=== PATIENT | female | born 1995 | race Caucasian/White ===

== ENCOUNTER 2017-12-14 14:21 | Inpatient (IN) | payer OTHER ==
[2017-12-14] MEDS: IV NORMAL SALINE 1000ML BAG 1,000 ML IV ×2 (15:37→20:30)
[2017-12-14] MEDS: LIDO:MAALOX:DONNATAL 1:1:1 15 ML SINGLE DOSE SWSW (15:40)
[2017-12-14] MEDS: ONDANSETRON PF 4 MG/2 ML VIAL. IV ×2 (15:42→23:04)
[2017-12-14] MEDS: PANTOPRAZOLE IV PUSH 40 MG VIAL. IVP (15:46)
[2017-12-14] MEDS: FAMOTIDINE 20 MG TABLET. PO (15:55)
[2017-12-14] MEDS: fentaNYL PF VIAL 100 MCG/2 ML VIAL IV ×3 (15:55→21:57)
[2017-12-14 15:56] LABS: BILIRUBIN,URINE NEGATIVE (NEG); CLARITY,URINE TURBID; COLOR,URINE YELLOW; GLUCOSE,URINE NEGATIVE (NEG); NITRITE,URINE NEGATIVE (NEG); PROTEIN,URINE NEGATIVE (NEG-TRACE)
[2017-12-14 15:57] LABS: URINE HCG POC HCG NEGATIVE (Negative)
[2017-12-14 16:05] LABS: BACTERIA,URINE MODERATE /HPF (0-FEW); RBC,URINE 0 /HPF (0-2); SQUAMOUS EPITHELIAL CELL,UR MOD /LPF
[2017-12-14 16:11] LABS: ADD MAN DIFF? NO
[2017-12-14 16:12] LABS: BASO # 0.1 x10^3/uL (0.0-0.2); BASO % 1 % (0-3); EOS # 0.1 x10^3/uL (0.0-0.7); EOS % 1 % (0-3); HEMATOCRIT 36.5 % (36.0-47.0); HEMOGLOBIN 12.6 g/dL (12.0-15.5); LYMPH % 31 % (24-48); MEAN CORPUSCULAR HEMOGLOBIN 32 pg (25-35); MEAN CORPUSCULAR HGB CONC 35 g/dL (31-37); MEAN CORPUSCULAR VOLUME 91 fL (79-100); MONO # 0.5 x10^3/uL (0.0-1.1); MONO % 8 % (0-9); NEUT # 3.8 x10^3uL (1.8-7.7); NEUT % 59 % (31-73); PLATELET COUNT 158 x10^3/uL (140-400); RED BLOOD COUNT 3.99 x10^6/uL (3.50-5.40); RED CELL DISTRIBUTION WIDTH 11.9 % (11.5-14.5); WHITE BLOOD COUNT 6.5 x10^3/uL (4.0-11.0)
[2017-12-14 16:29] LABS: ANION GAP 9 (6-14); BLOOD UREA NITROGEN 17 mg/dL (7-20); BUN/CREATININE RATIO 21 (6-20); CALCIUM 8.2 mg/dL (8.5-10.1); CARBON DIOXIDE 26 mmol/L (21-32); CHLORIDE 105 mmol/L (98-107); CREATININE 0.8 mg/dL (0.6-1.0); GFR 88.9; GLUCOSE 92 mg/dL (70-99); POTASSIUM 3.9 mmol/L (3.5-5.1); SODIUM 140 mmol/L (136-145)
[2017-12-14 16:34] LABS: ALBUMIN 3.6 g/dL (3.4-5.0); ALBUMIN/GLOBULIN RATIO 1.2 (1.0-1.7); ALK PHOS 49 U/L (46-116); ALT (SGPT) 132 U/L (14-59); AST (SGOT) 49 U/L (15-37); LIPASE 86 U/L (73-393); TOTAL BILIRUBIN 1.2 mg/dL (0.2-1.0); TOTAL PROTEIN 6.5 g/dL (6.4-8.2)
[2017-12-15] MEDS: fentaNYL PF VIAL 100 MCG/2 ML VIAL IV ×3 (04:10→13:15)
[2017-12-15 05:27] LABS: ADD MAN DIFF? NO
[2017-12-15 05:33] LABS: BASO % 1 % (0-3); EOS # 0.1 x10^3/uL (0.0-0.7); EOS % 1 % (0-3); HEMOGLOBIN 11.4 g/dL (12.0-15.5); LYMPH # 2.1 x10^3/uL (1.0-4.8); LYMPH % 40 % (24-48); MEAN CORPUSCULAR HEMOGLOBIN 32 pg (25-35); MEAN CORPUSCULAR HGB CONC 35 g/dL (31-37); MEAN CORPUSCULAR VOLUME 93 fL (79-100); MONO # 0.6 x10^3/uL (0.0-1.1); MONO % 11 % (0-9); NEUT # 2.5 x10^3uL (1.8-7.7); NEUT % 47 % (31-73); PLATELET COUNT 125 x10^3/uL (140-400); RED BLOOD COUNT 3.56 x10^6/uL (3.50-5.40); RED CELL DISTRIBUTION WIDTH 12.1 % (11.5-14.5); WHITE BLOOD COUNT 5.3 x10^3/uL (4.0-11.0)
[2017-12-15 06:01] LABS: ANION GAP 10 (6-14); BLOOD UREA NITROGEN 17 mg/dL (7-20); CALCIUM 8.4 mg/dL (8.5-10.1); CARBON DIOXIDE 24 mmol/L (21-32); CHLORIDE 107 mmol/L (98-107); CREATININE 0.8 mg/dL (0.6-1.0); GFR 88.9; GLUCOSE 75 mg/dL (70-99); POTASSIUM 3.6 mmol/L (3.5-5.1); SODIUM 141 mmol/L (136-145)
[2017-12-15] MEDS: IV NORMAL SALINE 1000ML BAG 1,000 ML IV ×2 (06:30→16:40)
[2017-12-15] MEDS: IV RINGERS,LACTATED 1000ML 1,000 ML IV ×2 (11:26→19:40)
[2017-12-15] MEDS ORDERED: MIDAZOLAM HCL/PF 2 MG/2 ML VIAL. IV (11:30)
[2017-12-15] MEDS ORDERED: LIDOCAINE 1% PF 2 ML VIAL. ID (11:30)
[2017-12-15] MEDS ORDERED: fentaNYL PF VIAL 100 MCG/2 ML VIAL IV ×3 (11:30→20:30)
[2017-12-15] MEDS ORDERED: LIDOCAINE 2% PF Vial for OR 5 ML VIAL. (11:54)
[2017-12-15] MEDS ORDERED: PROPOFOL 20 ML IV (11:54)
[2017-12-15] MEDS: MAALOX:LIDO:APAP 6:2:1 ORAL SUSPENSION 180 ML BOTTLE. PO ×2 (12:54→21:15)
[2017-12-15] MEDS: PANTOPRAZOLE 40 MG TABLET.DR. PO (12:54)
[2017-12-15] MEDS ORDERED: DOCUSATE SODIUM 100 MG CAPSULE. PO (13:45)
[2017-12-15] MEDS ORDERED: MORPHINE SULFATE 2 MG/ML DISP.SYRIN. IV (13:45)
[2017-12-15] MEDS ORDERED: ACETAMINOPHEN 325 MG TABLET. PO (13:45)
[2017-12-15] MEDS ORDERED: hydrALAZINE 20 MG/ML VIAL. IVP (13:45)
[2017-12-15] MEDS: traMADol 50 MG TABLET PO ×2 (16:39→21:15)
[2017-12-15] MEDS: ONDANSETRON PF 4 MG/2 ML VIAL. IV (21:13)
[2017-12-16] MEDS: traMADol 50 MG TABLET PO ×3 (03:17→17:09)
[2017-12-16 07:20] LABS: ADD MAN DIFF? NO
[2017-12-16 07:36] LABS: BASO % 1 % (0-3); EOS # 0.1 x10^3/uL (0.0-0.7); EOS % 2 % (0-3); HEMATOCRIT 34.8 % (36.0-47.0); HEMOGLOBIN 11.8 g/dL (12.0-15.5); LYMPH # 2.1 x10^3/uL (1.0-4.8); LYMPH % 46 % (24-48); MEAN CORPUSCULAR HEMOGLOBIN 32 pg (25-35); MEAN CORPUSCULAR HGB CONC 34 g/dL (31-37); MEAN CORPUSCULAR VOLUME 93 fL (79-100); MONO # 0.5 x10^3/uL (0.0-1.1); MONO % 12 % (0-9); NEUT # 1.9 x10^3uL (1.8-7.7); NEUT % 41 % (31-73); PLATELET COUNT 118 x10^3/uL (140-400); RED BLOOD COUNT 3.74 x10^6/uL (3.50-5.40); RED CELL DISTRIBUTION WIDTH 12.2 % (11.5-14.5); WHITE BLOOD COUNT 4.7 x10^3/uL (4.0-11.0)
[2017-12-16] MEDS: IV NORMAL SALINE 1000ML BAG 1,000 ML IV ×2 (07:50→08:11)
[2017-12-16 07:57] LABS: ANION GAP 8 (6-14); BLOOD UREA NITROGEN 9 mg/dL (7-20); CALCIUM 8.1 mg/dL (8.5-10.1); CARBON DIOXIDE 26 mmol/L (21-32); CHLORIDE 109 mmol/L (98-107); CREATININE 0.7 mg/dL (0.6-1.0); GFR 103.7; GLUCOSE 73 mg/dL (70-99); POTASSIUM 3.7 mmol/L (3.5-5.1); SODIUM 143 mmol/L (136-145)
[2017-12-16] MEDS: PANTOPRAZOLE 40 MG TABLET.DR. PO (08:10)
[2017-12-16] MEDS: MAALOX:LIDO:APAP 6:2:1 ORAL SUSPENSION 180 ML BOTTLE. PO (08:10)
[2017-12-16 09:20] LABS: HCV ANTIBODY <0.1 s/co ratio (0.0-0.9); HEP A IGM ABDY Negative (Negative); HEP B SURFACE AG Negative (Negative)
[2017-12-16] MEDS ORDERED: MAALOX:LIDO:APAP 6:2:1 ORAL SUSPENSION 180 ML BOTTLE. PO (11:45)
[2017-12-16] MEDS: DICYCLOMINE HCL 10 MG CAPSULE PO (12:11)
[2017-12-16 12:12] LABS: ALBUMIN 3.5 g/dL (3.4-5.0); ALK PHOS 37 U/L (46-116); ALT (SGPT) 79 U/L (14-59); AST (SGOT) 21 U/L (15-37); DIRECT BILIRUBIN 0.2 mg/dL (0.0-0.2); TOTAL BILIRUBIN 0.8 mg/dL (0.2-1.0)
[2017-12-16] MEDS: ONDANSETRON ODT 4 MG TAB.RAPDIS. PO (17:08)
== END 2017-12-16 17:30 | disposition home or self-care (01) | DRG 392 ==
LOC: ER 14:21 → 4 NORTH 16:49
PROC: 0DB68ZX Excision of Stomach, Via Natural or Artificial Opening Endoscopic, Diagnostic (ICD-10-PCS; principal; 2017-12-15 12:01)
DX: K20.9 Esophagitis, unspecified (principal); F41.9 Anxiety disorder, unspecified; R82.4 Acetonuria; R74.0 Nonspecific elevation of levels of transaminase and lactic acid dehydrogenase [LDH]; N83.201 Unspecified ovarian cyst, right side; Z80.3 Family history of malignant neoplasm of breast; Z82.3 Family history of stroke; Z82.49 Family history of ischemic heart disease and other diseases of the circulatory system; Z90.49 Acquired absence of other specified parts of digestive tract
CPT/HCPCS: 36415; 80048; 80053; 80074; 80076; 81001; 81025; 83690; 85025; 87086; 88305; 88342; 96374; 96375; 99285-25; C9113; J2405; J2704; J3010; J7030; J7120; Q0162

== ENCOUNTER → 2017-12-14 | Outpatient (CLI) | payer OTHER | END | disposition home or self-care (01) | LOC: US 11:45 | DX: R10.12 Left upper quadrant pain (principal) | CPT/HCPCS: 76830; 76856 ==

== ENCOUNTER → 2017-12-26 | Outpatient (CLI) | payer OTHER ==
[2017-12-26] MEDS: IOHEXOL 300 MG/ML 100ML VIAL. IV ×2 (14:56)
[2017-12-26] MEDS: IOHEXOL 240 MG/ML 50ML VIAL. PO ×2 (14:56)
== END | disposition home or self-care (01) ==
LOC: KCIC CT 13:50
DX: K52.9 Noninfective gastroenteritis and colitis, unspecified (principal)
CPT/HCPCS: 74177; Q9966; Q9967

== ENCOUNTER → 2017-12-27 | Outpatient (CLI) | payer OTHER | END | disposition home or self-care (01) | LOC: US 14:35 | DX: R10.33 Periumbilical pain (principal); Z90.49 Acquired absence of other specified parts of digestive tract | CPT/HCPCS: 76700 ==

== ENCOUNTER 2018-01-18 10:39 | Outpatient (CLI) | payer OTHER ==
[2018-01-18] MEDS ORDERED: LIDOCAINE WITH 8.4% SOD BICARB 3 ML DISP.SYRIN. (11:38)
[2018-01-18] MEDS: LIDOCAINE WITH 8.4% SOD BICARB 3 ML DISP.SYRIN. IJ (12:00)
== END 2018-01-18 12:45 | disposition home or self-care (01) ==
LOC: INTRAD 10:39
DX: Z45.2 Encounter for adjustment and management of vascular access device (principal); R55 Syncope and collapse; R63.4 Abnormal weight loss; R10.9 Unspecified abdominal pain; Z79.899 Other long term (current) drug therapy
CPT/HCPCS: 36569; 76937; 77001; C1751; C1892

== ENCOUNTER → 2018-01-18 | Outpatient (CLI) | payer OTHER ==
[2018-01-18 15:40] LABS: PREALBUMIN 25.5 mg/dL (16.0-42.0)
[2018-01-18 15:41] LABS: ALBUMIN/GLOBULIN RATIO 1.3 (1.0-1.7); ALK PHOS 39 U/L (46-116); ALT (SGPT) 29 U/L (14-59); ANION GAP 9 (6-14); AST (SGOT) 16 U/L (15-37); BLOOD UREA NITROGEN 20 mg/dL (7-20); BUN/CREATININE RATIO 29 (6-20); CALCIUM 8.7 mg/dL (8.5-10.1); CARBON DIOXIDE 26 mmol/L (21-32); CHLORIDE 106 mmol/L (98-107); CREATININE 0.7 mg/dL (0.6-1.0); GFR 103.7; GLUCOSE 105 mg/dL (70-99); MAGNESIUM 2.1 mg/dL (1.8-2.4); PHOSPHORUS 3.5 mg/dL (2.6-4.7); POTASSIUM 3.7 mmol/L (3.5-5.1); SODIUM 141 mmol/L (136-145); TOTAL BILIRUBIN 1.1 mg/dL (0.2-1.0)
[2018-01-18 15:51] LABS: ADD MAN DIFF? NO
[2018-01-18 15:53] LABS: BASO # 0.1 x10^3/uL (0.0-0.2); BASO % 1 % (0-3); EOS % 1 % (0-3); HEMATOCRIT 37.2 % (36.0-47.0); HEMOGLOBIN 12.6 g/dL (12.0-15.5); LYMPH # 1.9 x10^3/uL (1.0-4.8); LYMPH % 34 % (24-48); MEAN CORPUSCULAR HEMOGLOBIN 31 pg (25-35); MEAN CORPUSCULAR HGB CONC 34 g/dL (31-37); MEAN CORPUSCULAR VOLUME 92 fL (79-100); MONO # 0.7 x10^3/uL (0.0-1.1); MONO % 12 % (0-9); NEUT # 2.8 x10^3uL (1.8-7.7); NEUT % 52 % (31-73); PLATELET COUNT 157 x10^3/uL (140-400); RED BLOOD COUNT 4.03 x10^6/uL (3.50-5.40); WHITE BLOOD COUNT 5.5 x10^3/uL (4.0-11.0)
== END | disposition home or self-care (01) ==
LOC: LAB 14:51
DX: K31.84 Gastroparesis (principal); E44.0 Moderate protein-calorie malnutrition; E86.0 Dehydration; K29.50 Unspecified chronic gastritis without bleeding; R11.2 Nausea with vomiting, unspecified; R53.83 Other fatigue; R68.81 Early satiety
CPT/HCPCS: 36415; 80053; 83735; 84100; 84134; 85025